=== PATIENT | female | born 1955 | race African-American/Black ===

== ENCOUNTER 2017-12-07 05:51 | Inpatient (IN) | payer BC ==
[2017-11-30 17:37] VITALS: BMI 28.5
[2017-12-07] MEDS ORDERED: MIDAZOLAM HCL 2 MG/2 ML SINGLE DOSE VIAL ONE (06:57)
[2017-12-07] MEDS ORDERED: BUPIVACAINE LIPOSOME/PF (EXPAREL) 266 MG/20 ML VIAL ONE (06:58)
[2017-12-07] MEDS ORDERED: VANCOMYCIN 1,000 MG in DEXTROSE 5%-WATER - 250 ML IVPB ONE (07:08)
[2017-12-07] MEDS ORDERED: TRANEXAMIC ACID 1000 MG/10 ML VIAL IVPUSH ONE (07:08)
[2017-12-07] MEDS ORDERED: CEFAZOLIN 2 GM in DEXTROSE 5%-WATER - 50 ML IVPB ONE (07:08)
[2017-12-07] MEDS ORDERED: ONDANSETRON 4 MG/2 ML VIAL ONE ×2 (07:13→11:51)
[2017-12-07] MEDS ORDERED: DEXAMETHASONE SOD PHOSPHATE 4 MG/1 ML VIAL ONE (07:13)
[2017-12-07] MEDS ORDERED: PROPOFOL 20 ML ONE (07:13)
[2017-12-07] MEDS ORDERED: SUCCINYLCHOLINE CHLORIDE 200 MG/10 ML VIAL ONE (07:13)
[2017-12-07] MEDS ORDERED: VANCOMYCIN 1,000 MG VIAL (RESTRICTED TO ID ONLY) ONE (07:13)
[2017-12-07] MEDS: CELECOXIB 200 MG CAPSULE PO ONE ×2 (07:25→14:45)
[2017-12-07] MEDS: oxyCODONE HCL 10 MG SUSTAINED ACTING TABLET PO ONE ×2 (07:25→14:45)
[2017-12-07] MEDS ORDERED: ceFAZolin SODIUM 1 GM VIAL ONE ×2 (08:39→10:22)
[2017-12-07] MEDS ORDERED: TRANEXAMIC ACID 1000 MG/10 ML VIAL ONE (10:35)
[2017-12-07] MEDS ORDERED: ONDANSETRON 4 MG/2 ML VIAL IVPUSH PRN ×2 (11:05→11:57)
[2017-12-07] MEDS ORDERED: oxyCODONE HCL 5 MG TABLET PO PRN (11:06)
[2017-12-07] MEDS ORDERED: ACETAMINOPHEN 325 MG TABLET (FP) PO SCH (11:15)
[2017-12-07] MEDS ORDERED: LACTATED RINGERS SOLUTION 1,000 ML IV SCH ×2 (11:15→12:00)
[2017-12-07] MEDS ORDERED: BENZOIN/ALOE VERA/STORAX/TOLU 58 ML BOTTLE ONE (11:20)
[2017-12-07] MEDS ORDERED: MAG HYDROX/AL HYDROX/SIMETH 30 ML UNIT-DOSE CUP PO PRN (11:57)
[2017-12-07] MEDS ORDERED: MAGNESIUM HYDROX 2400MG/30ML ORAL SUSPENSION 30 ML CUP PO PRN (11:57)
--- NOTE | 2017-12-07 12:05 | OP ---
Operative Note - Note: Operative Date: 12/07/17 Pre-Operative Diagnosis: Left knee DJD Operation: Left total knee replacement Implants: [employer] Tri[employer]. Femur - 4. Tibia - 4. Poly - 9mm, PS. Patella - 27mm, symmetric Surgeon: Sinan Rodriguez Electroencephalographic Technologist: John Rodriguez Anesthesiologist/NETBACKUP ENGINEER: Ana Cristina Palafox Anesthesia: Spinal Specimens Removed: Bone, soft tissue Estimated Blood Loss (mls): 25 Fluid Volume Replaced (mls): 1,000 Operative Report Dictated: Yes
--- NOTE | 2017-12-07 12:08 | PN ---
Progress Note (short form) - Note Progress Note: 62F s/p left total knee replacement POD #0. -Pain control. -DVT PPx: -Chemical: ASA 81mg PO BID x 6 weeks. -Mechanical: ANTHONY's, SCD's. -Incentive spirometry. -PT/OT/Rehab, OOB. -WBAT LLE. -Antibiotics: Ancef x 2 post op doses. -f/u post-op trial of void. -Diet as tolerated. -Keep dressing clean & dry. -Care per medical hospitalist team. -f/u [facility] [place] office 12/15/2017; call for appointment; . -Will follow. Sinan Rodriguez MD (Orthopaedic Surgery).
[2017-12-07] MEDS: ACETAMINOPHEN 1000 MG/100 ML VIAL (NON FORMULARY) IVPB SCH ×2 (12:26→14:46)
[2017-12-07] MEDS ORDERED: ACETAMINOPHEN 1000 MG/100 ML VIAL (NON FORMULARY) IVPB SCH (13:45)
[2017-12-07] MEDS: oxyCODONE HCL 5 MG TABLET PO PRN ×2 (13:58→20:15)
[2017-12-07] MEDS: VALSARTAN 160 MG TABLET (UD) PO SCH (14:46)
[2017-12-07] MEDS: amLODIPine BESYLATE 10 MG TABLET (FP) PO SCH (14:46)
--- NOTE | 2017-12-07 17:06 | OP ---
PREOPERATIVE DIAGNOSIS: Osteoarthritis left knee. POSTOPERATIVE DIAGNOSIS: Osteoarthritis left knee. PROCEDURE PERFORMED: Left total knee replacement. SURGEON: Sinan Rodriguez M.D. JAPANESE INTERPRETER: John Rodriguez M.D. ANESTHESIA: Spinal, sedation, adductor canal block. POSITION: Supine INCISION: Midline SPECIMENS REMOVED: Bones, soft tissue. ESTIMATED BLOOD LOSS: 25 mL. INTRAVENOUS FLUID: 1L crystalloid. SPECIMENS: None. DRAINS: None. COMPLICATIONS: None. URINE OUTPUT: None. BACTERIOLOGY: None. TRANSFUSIONS: None. CLOSURE: No. 1 and 2-0 Vicryl, 3-0 Biosyn absorbable sutures. TOURNIQUET PRESSURE: 350 mmHg. TOURNIQUET TIME: 83 minutes. INDICATIONS: The patient is a 62-year-old female who was indicated for a left total knee replacement in order to facilitate improved motion and mobilization and to prevent the complications associated with a sedentary lifestyle. The patient was identified in the holding area by her armband. A long discussion was held with the patient in the presence of her regarding the risks, benefits, and alternatives of the above-named procedure. The risks include, but are not limited to: Pain, bleeding, infection, damage to surrounding structures (including nerves, blood vessels, skin, ligaments, tendons, and bone), wound complications, failure of hardware/implants/reduction, need for further surgery, blood clots, myocardial infarction, cerebrovascular injury, pulmonary embolism, anesthesia complications, compartment syndrome, limb loss, limp, loss of function, and . Benefits were as mentioned above. Alternatives include no surgery. All questions were answered. The patient and her partner understood and agreed to the procedure. Informed consent was obtained, witnessed, and verified. The patient 's correct operative limb - that is the left lower extremity - was marked. The patient was taken to the operating room after being seen by the anesthesia and nursing staff. PROCEDURE: The patient received a left lower extremity adductor canal nerve block in the preoperative holding area. She was then brought into the operating room and transferred to the OR table, where she was secured with a safety strap. Consent and the operative site were again verified with the patient and nursing and anesthesia staff. Upon arrival into the operating room, she received 1 g of intravenous vancomycin as well as 2 g of intravenous Ancef. A time-out was then done led by , the attending surgeon. A preoperative orthopedic examination revealed a marked varus deformity of the left knee with no evidence of flexion contracture of the knee. The patient was positioned with all bony prominences well padded, and a tourniquet was placed proximally on the left thigh and set to 350 mmHg. The operative limb was prepped in standard sterile fashion using betadine prep & scrub, alcohol, and DuraPrep, and then free draped. A time-out was again done. The limb was then exsanguinated using elevation and an Esmarch. The tourniquet was inflated, and the case began. A midline longitudinal incision was made over the left knee followed by a subvastus exposure. The infrapatellar fat pad was excised. A peripatellar neurectomy was performed using electrocautery. The patella was everted and a free-hand cut was made using an oscillating saw blade to facilitate patellar resurfacing. With the intention of implanting a small symmetric patellar button, a drill guide was utilized to ream 3 drill holes into the cut surface of the patella. The knee was then flexed to 90 degrees and the ACL and PCL were transected using electrocautery. Throughout the case, sharp and blunt Hohmann retractors were used to provide full exposure of the knee and also to protect the collateral ligaments, the patellar ligament, the quadriceps mechanism, and other soft tissue structures. Next, attention was turned to the proximal tibia. The tibia was subluxed anteriorly and the extra-medullary jig was assembled and placed. With alignment verified, the tibial cutting block was pinned into position and the proximal tibial cut was made using an oscillating saw. The bone cut was freed of all soft tissue attachments using electrocautery. Next, attention was turned to the distal femur. An opening reamer was used to access the medullar canal of the distal femur. This was approximately 1cm anterior to the intercondylar notch and centered of the lateral aspect of the medial femoral condyle. The intra-medullary alignment jig was then inserted and the distal femoral cutting block was pinned into position. The distal femoral cut was then made using an oscillating saw. Using a combination of Oakland's line, the trans-epicondylar axis, and the posterior condylar axis, appropriate rotation of the distal femoral sizing block was dialed in. The size of the distal femur was measured and the 4-in-1 distal femoral cutting block was pinned into position. The anterior, anterior chamfer, posterior, and posterior chamfer cuts were then made using an oscillating saw. All bone cuts were removed. With the knee in full extension, a rectangular box could be visualized where the bone cuts had been made. With gentle impaction of the proximal tibia into the distal femur, excellent limb alignment was confirmed. Next laminar spreaders were used to facilitate electrocautery excision of the medial and lateral menisci. A spacer block was then used to confirm symmetric space balance in both full extension and in 90 degrees of flexion of the knee. The notch cutting block was pinned into place over the distal femur and the notch cuts were made using a chisel and an oscillating saw. The bone cut and soft tissue attachments were excised using electrocautery. The tibial preparation plate was then pinned into place, the trial femoral component was positioned, and a 9mm trial polyethylene liner was inserted. The knee was then taken through a full range of motion, demonstrating excellent stability and range of motion in the coronal, sagittal, and axial planes from 0 to 130 degrees of flexion. The femoral trial component and polyethylene liner were then removed and the proximal tibial preparation was completed using a drill guide, drill, and keel punch. All tibial trial components were then removed. All cut bone surfaces, soft tissues, and remaining surgically exposed structures were then thoroughly irrigated using pulse lavage. The cut bone surfaces were dried and the interstices of the bone bed were free of blood, water, and lipid content. Final components were implanted using low viscosity cement mixed in a vacuum. Cementation was performed using a pressurized gun. The trial 9mm liner was then inserted. The knee was then placed in full extension while the cement hardened. All extraneous cement was removed. Next, the knee was taken through a full range of motion and alignment and stability in the coronal, sagittal, and rotation planes in full extension and at 90 degrees of flexion were satisfactory. The leg was straightened, and passive range of motion was demonstrated from 0 to 130 degrees of knee flexion. The knee was thoroughly irrigated once again after removal of the trial polyethylene insert. The tourniquet was then released at a final time of 83 minutes, and hemostasis was achieved using electrocautery. The final polyethylene liner was then inserted. Once again, the knee was taken through a full range of motion and alignment and stability in the coronal, sagittal, and rotation planes in full extension and at 90 degrees of flexion were satisfactory. The leg was straightened, and passive range of motion was demonstrated from 0 to 130 degrees of knee flexion. Final components utilized: [employer] Triathlon Femur - size #4. Tibia - size #4. Polyethylene liner - 9mm, PS (posterior stabilized). Patella - 27mm, symmetric. Once again, the wounds were copiously irrigated. With hemostasis assured, the decision was made not to use a drain. The wounds were closed primarily using No. 1 and 2-0 Vicryl sutures, and the skin was eventually closed using 3-0 Biosyn in intracuticular running fashion. Next, the skin surface was cleaned using saline -soaked lap pads and then dried using dry lap pads. Benzoin and Steri-Strips as well as a JumpStart dressing were applied over the wounds, and Webril as well as Horacio wraps were placed from the foot all the way up to the thigh with a compressive, sterile dressing. The sponge and needle counts were correct at the end of the case, and I, the attending surgeon, was present and scrubbed throughout the case. The patient was then transferred to the hospital bed and then to the recovery room in stable condition having tolerated this procedure well. MD CHANDA Kessler/[id number] MTDD
[2017-12-07] MEDS: CEFAZOLIN 2 GM/D5W 2 GM/50 ML ML IVPB SCH (17:32)
[2017-12-07] MEDS: ACETAMINOPHEN 325 MG TABLET (FP) PO SCH (17:33)
[2017-12-07] MEDS: oxyCODONE HCL 10 MG SUSTAINED ACTING TABLET PO SCH (21:52)
[2017-12-07] MEDS: ASPIRIN 81 MG CHEWABLE TABLETS PO SCH (21:52)
[2017-12-07] MEDS: SENNOSIDES/DOCUSATE COMBO (SENNA PLUS) TABLET (UD) PO SCH (21:53)
[2017-12-08] MEDS: ACETAMINOPHEN 325 MG TABLET (FP) PO SCH ×5 (01:46→23:38)
[2017-12-08] MEDS: CEFAZOLIN 2 GM/D5W 2 GM/50 ML ML IVPB SCH (02:19)
[2017-12-08] MEDS: oxyCODONE HCL 5 MG TABLET PO PRN ×3 (02:37→16:58)
--- NOTE | 2017-12-08 07:52 | CONSULT ---
Consultation: REQUESTING PROVIDER: Dr Rodriguez CONSULT REQUEST: We have been asked to medically evaluate this patient for medical management. HISTORY OF PRESENT ILLNESS: Patient is a 62 y/o female with a past medical history of hypertension and osteoarthritits, Patient is s/p left total knee replacement, 12/07/17 REVIEW OF SYSTEMS: CONSTITUTIONAL: Absent: fever, chills, diaphoresis, generalized weakness, malaise, loss of appetite, weight change HEENT: Absent: rhinorrhea, nasal congestion, throat pain, throat swelling, difficulty swallowing, mouth swelling, ear pain, eye pain, visual changes CARDIOVASCULAR: Absent: chest pain, syncope, palpitations, irregular heart rate, lightheadedness , peripheral edema RESPIRATORY: Absent: cough, shortness of breath, dyspnea with exertion, orthopnea, wheezing, stridor, hemoptysis GASTROINTESTINAL: Absent: abdominal pain, abdominal distension, nausea, vomiting, diarrhea, constipation, melena, hematochezia GENITOURINARY: Absent: dysuria, frequency, urgency, hesitancy, hematuria, flank pain, genital pain MUSCULOSKELETAL: Present: left knee replacement Absent: myalgia, arthralgia, joint swelling, back pain, neck pain SKIN: Absent: rash, itching, pallor HEMATOLOGIC/IMMUNOLOGIC: Absent: easy bleeding, easy bruising, lymphadenopathy, frequent infections ENDOCRINE: Absent: unexplained weight gain, unexplained weight loss, heat intolerance, cold intolerance NEUROLOGIC: Absent: headache, focal weakness or paresthesias, dizziness, unsteady gait, seizure, mental status changes, bladder or bowel incontinence PSYCHIATRIC: Absent: anxiety, depression, suicidal or homicidal ideation, hallucinations. PHYSICAL EXAMINATION Vital Signs - 24 hr 12/07/17 12/07/17 12/07/17 11:40 11:45 11:50 Temperature 98.1 F Pulse Rate 80 67 78 Respiratory 18 14 14 Rate Blood Pressure 103/73 130/70 134/59 O2 Sat by Pulse 97 99 96 Oximetry (%) 12/07/17 12/07/17 12/07/17 11:55 12:10 12:25 Temperature Pulse Rate 79 77 80 Respiratory 14 15 15 Rate Blood Pressure 143/61 124/58 140/66 O2 Sat by Pulse 97 99 96 Oximetry (%) 12/07/17 12/07/17 12/07/17 12:40 13:50 19:00 Temperature 98.1 F 97.9 F 97.9 F Pulse Rate 78 73 73 Respiratory 15 16 16 Rate Blood Pressure 142/50 143/63 143/63 O2 Sat by Pulse 95 95 Oximetry (%) 12/07/17 12/07/17 12/08/17 20:41 22:26 06:00 Temperature 99.3 F 99.1 F Pulse Rate 69 65 Respiratory 16 17 18 Rate Blood Pressure 166/62 152/67 O2 Sat by Pulse 95 96 94 L Oximetry (%) GENERAL: Awake, alert, and fully oriented, in no acute distress. HEAD: Normal with no signs of trauma. EYES: Pupils equal, round and reactive to light, extraocular movements intact, sclera anicteric, conjunctiva clear. No lid lag. EARS, NOSE, THROAT: Ears normal, nares patent, oropharynx clear without exudates. Moist mucous membranes. NECK: Normal range of motion, supple without lymphadenopathy, JVD, or masses. LUNGS: Breath sounds equal, clear to auscultation bilaterally. No wheezes, and no crackles. No accessory muscle use. HEART: Regular rate and rhythm, normal S1 and S2 without murmur, rub or gallop. ABDOMEN: Soft, nontender, not distended, normoactive bowel sounds, no guarding, no rebound, no masses. No hepatomegaly or splenomegaly. MUSCULOSKELETAL: Normal range of motion at all joints. No bony deformities or tenderness. No CVA tenderness. UPPER EXTREMITIES: 2+ pulses, warm, well-perfused. No cyanosis. No clubbing. Cap refill <2 seconds. No peripheral edema. LOWER EXTREMITIES: 2+ pulses, warm, well-perfused. No calf tenderness. No peripheral edema. LEFT LOWER EXTREMITY: scd/jose antonio, dressing cdi, less than 3 second capillary refill , +3 pedal pulse NEUROLOGICAL: Cranial nerves II-XII intact. Normal speech. Normal gait. PSYCHIATRIC: Cooperative. Good eye contact. Appropriate mood and affect. SKIN: Warm, dry, normal turgor, no rashes or lesions noted. Active Medications Generic Name Dose Route Start Last Admin Trade Name Freq PRN Reason Stop Dose Admin Acetaminophen 650 mg 12/07/17 18:30 12/08/17 05:59 Tylenol - PO 12/10/17 18:29 650 mg Q6H FELICIANO Administration Al Hydroxide/Mg Hydroxide 30 ml 12/07/17 11:57 Mylanta Oral Suspension - PO Q4H PRN DYSPEPSIA Amlodipine Besylate 10 mg 12/07/17 10:00 12/07/17 14:46 Norvasc - PO Not Given DAILY [facility] Aspirin 81 mg 12/07/17 22:00 12/07/17 21:52 Asa - PO 81 mg BID FELICIANO Administration Celecoxib 200 mg 12/08/17 10:00 Celebrex - PO DAILY [facility] Magnesium Hydroxide 30 ml 12/07/17 11:57 Milk Of Magnesia - PO PRN PRN CONSTIPATION Ondansetron HCl 4 mg 12/07/17 11:57 12/07/17 11:51 Zofran Injection IVPUSH 4 mg Q6H PRN Administration NAUSEA Oxycodone HCl 5 mg 12/07/17 11:06 Roxicodone - PO Q3H PRN PAIN LEVEL 1-5 Oxycodone HCl 10 mg 12/07/17 11:06 12/08/17 02:37 Roxicodone - PO 10 mg Q3H PRN Administration PAIN LEVEL 6-10 Oxycodone HCl 10 mg 12/07/17 22:00 12/07/17 21:52 Oxycontin - PO 12/10/17 11:06 10 mg BID FELICIANO Administration Pantoprazole Sodium 40 mg 12/08/17 10:00 Protonix - PO DAILY [facility] Senna/Docusate Sodium 2 tablet 12/07/17 22:00 12/07/17 21:53 Pericolace - PO 2 tablet BID FELICIANO Administration Valsartan 320 mg 12/07/17 10:00 12/07/17 14:46 Diovan - PO Not Given DAILY [facility] ASSESSMENT/PLAN: 1) MS s/p left total knee replacement - prn pain medication - physical therapy as per orthopedist - monitor hgb 2) cardiovascular hypertension - continue home medications, b/p at goal Dispo: We will continue to follow the patient. Thank you for this consultative opportunity. Visit type - Emergency Visit Emergency Visit: No - New Patient This patient is new to me today: No - Critical Care Critical Care patient: No
[2017-12-08 07:57] LABS: HEMATOCRIT 35.7 % (32.4-45.2); HEMOGLOBIN 12.2 GM/dl (10.7-15.3); MCH 30.5 pg (25.7-33.7); MCHC 34.1 g/dl (32.0-36.0); MEAN CELL VOLUME 89.5 fl (80-96); MEAN PLT VOLUME 8.5 fl (7.5-11.1); PLATELET COUNT 280 K/MM3 (134-434); RDW 13.5 % (11.6-15.6); WHITE BLOOD COUNT 12.8 K/mm3 (4.0-10.8)
[2017-12-08 08:11] LABS: ANION GAP 8 (8-16); BLOOD UREA NITROGEN 17 mg/dl (7-18); CALCIUM 9.1 mg/dl (8.4-10.2); CHLORIDE 101 mmol/L (98-107); CO2 27 mmol/L (22-28); CREATININE 0.7 mg/dl (0.6-1.3); GLUCOSE,RANDOM 133 mg/dl (74-106); POTASSIUM 4.3 mmol/L (3.5-5.1); SODIUM 136 mmol/L (136-145)
[2017-12-08] MEDS: oxyCODONE HCL 10 MG SUSTAINED ACTING TABLET PO SCH ×2 (09:47→21:14)
[2017-12-08] MEDS: VALSARTAN 160 MG TABLET (UD) PO SCH (09:47)
[2017-12-08] MEDS: SENNOSIDES/DOCUSATE COMBO (SENNA PLUS) TABLET (UD) PO SCH ×2 (09:47→21:14)
[2017-12-08] MEDS: ASPIRIN 81 MG CHEWABLE TABLETS PO SCH ×2 (09:48→21:13)
[2017-12-08] MEDS: amLODIPine BESYLATE 10 MG TABLET (FP) PO SCH (09:48)
[2017-12-08] MEDS: PANTOPRAZOLE 40 MG TABLET (FP) PO SCH (09:48)
[2017-12-08] MEDS: CELECOXIB 200 MG CAPSULE PO SCH (09:48)
--- NOTE | 2017-12-08 15:02 | PN ---
Progress Note (short form) - Note Progress Note: 62F POD1 s/p L TKR under spinal anesthetic with peripheral nerve blocks. Pt states that pain is well controlled, and denies any anesthetic complications. AVSS. Motor and sensory function intact in bilateral lower extremities. Continue current regimen.
[2017-12-09] MEDS: ACETAMINOPHEN 325 MG TABLET (FP) PO SCH (07:06)
[2017-12-09] MEDS: oxyCODONE HCL 5 MG TABLET PO PRN (07:19)
[2017-12-09 08:21] LABS: MEAN CELL VOLUME 90.9 fl (80-96)
[2017-12-09 08:25] LABS: HEMOGLOBIN 11.7 GM/dl (10.7-15.3); MCH 29.6 pg (25.7-33.7); MCHC 32.6 g/dl (32.0-36.0); PLATELET COUNT 275 K/MM3 (134-434); RBC 3.96 M/mm3 (3.60-5.2); RDW 13.5 % (11.6-15.6); WHITE BLOOD COUNT 12.1 K/mm3 (4.0-10.8)
[2017-12-09] MEDS: SENNOSIDES/DOCUSATE COMBO (SENNA PLUS) TABLET (UD) PO SCH (10:35)
[2017-12-09] MEDS: CELECOXIB 200 MG CAPSULE PO SCH (10:35)
[2017-12-09] MEDS: ASPIRIN 81 MG CHEWABLE TABLETS PO SCH (10:35)
[2017-12-09] MEDS: amLODIPine BESYLATE 10 MG TABLET (FP) PO SCH (10:35)
[2017-12-09] MEDS: PANTOPRAZOLE 40 MG TABLET (FP) PO SCH (10:35)
[2017-12-09] MEDS: VALSARTAN 160 MG TABLET (UD) PO SCH (10:36)
[2017-12-09] MEDS: oxyCODONE HCL 10 MG SUSTAINED ACTING TABLET PO SCH (10:36)
--- NOTE | 2017-12-09 13:00 | PATH ---
Surgical Pathology Report Patient Name: MONIE RODRÍGUEZ Med. Rec. #: [id number] /Age/Gender: 1955 (Age: 62) / F Account: [id number] Location: [facility] MED-SURG Taken: 12/07/2017 Received: 12/07/2017 Reported: 12/09/2017 Physicians: Sinan Rodriguez M.D. Specimen(s) Received LEFT KNEE BONES Clinical History Left knee unilateral primary osteoarthritis Final Diagnosis KNEE BONES, LEFT, TOTAL KNEE REPLACEMENT: DEGENERATIVE JOINT DISEASE. Electronically Signed Sera Nicholson M.D. Gross Description Received in formalin labeled "left knee bones," is a 10.5 x 8.5 x 2.0 cm aggregate of tian portions of bone and soft tissue. The tibial plateau measures 7.4 x 4.8 x 1.5 cm. There is a 1.2 cm greatest dimension area of eburnation identified. The remaining articular surfaces are tian-yellow and focally granular. The underlying trabecular bone is yellow and hard. Tool Tender sections are submitted in one cassette, following decalcification. /12/08/2017 [facility]12/08/2017
--- NOTE | 2017-12-09 13:34 | DS ---
"Physical Exam: SUBJECTIVE: Patient seen and examined, ambulated independently with walker,, reports minimal pain to the left lower extremity denies any chest pain or shortness of breath tolerating diet. OBJECTIVE:Patient is a 62 y/o female with a past medical history of hypertension and osteoarthritits, Patient is s/p left total knee replacement, Vital Signs Period Temp Pulse Resp BP Sys/Otto Pulse Ox Last 24 Hr 98.7 F-99.4 F 72-88 18-20 140-159/56-75 96-100 PHYSICAL EXAM GENERAL: The patient is awake, alert, and fully oriented, in no acute distress. HEAD: Normal with no signs of trauma. EYES: PERRL, extraocular movements intact, sclera anicteric, conjunctiva clear. ENT: Ears normal, nares patent, oropharynx clear without exudates, moist mucous membranes. NECK: Trachea midline, full range of motion, supple. LUNGS: Breath sounds equal, clear to auscultation bilaterally, no wheezes, no crackles, no accessory muscle use. HEART: Regular rate and rhythm, S1, S2 without murmur, rub or gallop. ABDOMEN: Soft, nontender, nondistended, normoactive bowel sounds, no guarding, no rebound, no hepatosplenomegaly, no masses. EXTREMITIES: 2+ pulses, warm, well-perfused, no edema. LEFT LOWER EXTREMITY: DRESSING CLEAN DRY INTACT, LESS THAN 3 SECOND CAPILLARY REFILL, +3 PEDAL PULSE, NEUROLOGICAL: Cranial nerves II through XII grossly intact. Normal speech, gait not observed. PSYCH: Normal mood, normal affect. SKIN: Warm, dry, normal turgor, no rashes or lesions noted. LABS Laboratory Results - last 24 hr 12/09/17 08:00 WBC 12.1 H RBC 3.96 Hgb 11.7 Hct 36.0 MCV 90.9 MCH 29.6 MCHC 32.6 RDW 13.5 Plt Count 275 MPV 9.0 HOSPITAL COURSE: The patient was admitted to the Med-Surg Unit after an elective left total knee replacement, An xray was obtained in the OR and confirmed hardware placementin good position with no fractures or dislocations. The day of surgery, the patient ambulated the hallways with assistance. Narcotic and non-narcotic pain management control was achieved with an oral and IV approach. Gabriela-operative IV ABX were administered. DVT prophylaxis was achieved with SCDs and early ambulation. The patient ambulated with Physical Therapy and no services were recommended upon discharge. Narcotic scripts and or muscle relaxants were checked with [facility] prior to escibe. The discharge instructions and an oral pain management plan were reviewed with the patient. All questions answered. Above plan discussed with Dr. Rodriguez and agreed. Date of Admission:12/07/17 Date of Discharge: 12/09/17 Minutes to complete discharge: 45 Discharge Summary Reason For Visit: UNILATERAL PRIMARY OSTEOARTHRITIS, LEFT KNEE Condition: Good - Instructions Diet, Activity, Other Instructions: Dr. Rodriguez Discharge Instructions for Knee Replacement Post Operative Instructions Physical activity Physical Therapist will come to your home for the first 5 days. You will be set up with outpatient PT at your first post-operative visit. Use assistive devices for ambulation at all times. Weight bearing as tolerated on your surgical side. Do not put pillow under knee. May put pillow under heel. Wound care Leave your surgical dressing in place. Do not change the dressing until seen by your surgeon in the office. No baths or showers. Do not submerge your incision. Do not apply any ointments or lotions to your incision. Please call the office if your dressing is soiled/dirty or is falling off. Apply Graduated Compression Stockings (TEDS) to both lower extremities - remove daily for hygiene ONLY. Diet There are no dietary restrictions. Eat healthy, high-fiber foods. Drink 6 to 8 glasses of liquid each day. This will assist in keeping your bowels are regular. Pain management Any pain prescription medication ordered should be taken as prescribed for moderate to severe pain. Do not take additional Tylenol while taking Percocet. Take Aspirin 81 mg two times a day for a total of 6 weeks to prevent blood clots. Call Dr. Rodriguez for any of the following: Severe pain not relieved by medication Fever of 101 or higher Excessive bleeding or drainage on dressing Inability to urinate If you experience chest pain or shortness of breath, please seek emergency care immediately. Please call the office at to confirm your post-op appointment for the week following surgery. This report was requested by: Sameera Iverson | Reference #: [id number] Disposition: HOME - Home Medications Comprehensive Discharge Medication List: Ambulatory Orders Acetaminophen/Diphenhydramine [Tylenol Pm Ex-Strength Caplet] 1 each PO Q6H PRN 11/30/17 Amlodipine Besylate [Norvasc -] 10 mg PO DAILY 11/30/17 Valsartan 320 mg PO DAILY 11/30/17 This patient is new to me today: No Emergency Visit: No Critical Care patient: No - Discharge Referral Referred to [facility] No"
[2017-12-09 14:07] VITALS: BP 169/58; PULSE 77; TEMP 98.5
--- NOTE | 2017-12-09 15:17 | PN ---
Progress Note (short form) - Note Progress Note: POD#2 Pt oob with PT. No CP/SOB. Pain well controlled. Vital Signs Period Temp Pulse Resp BP Sys/Otto Pulse Ox Last 24 Hr 98.5 F-99.4 F 72-88 18-20 140-169/58-75 99-100 GEN: Appears comfortable CV: RRR Lungs: CTA b/l anteriorly Left leg: dressing c/d/i. No swelling noted. +2DP, 5/5 dorsi/plantar flexion. CBC, BMP /02/16 08:00 08/09/18 07:30 A/p: 62 yo female s/p Left total knee replacement, POD#2 Plan for discharge today D/w Dr. Rodriguez Instructed pt on post-operative care. DVT ppx, dressing care and office follow-up
== END 2017-12-09 16:00 | disposition home or self-care (01) | DRG 470 ==
LOC: FM/S 05:51
PROVIDERS: ADMIT Orthopaedic Surgery Adult Reconstructive Orthopaedic Surgery; ATTEND Orthopaedic Surgery Adult Reconstructive Orthopaedic Surgery
PROC: 0SRD0J9 Replacement of Left Knee Joint with Synthetic Substitute, Cemented, Open Approach (ICD-10-PCS; principal; 2017-12-07 08:00)
DX: M17.12 Unilateral primary osteoarthritis, left knee (principal); I10 Essential (primary) hypertension
CPT/HCPCS: 36415; 73560-TC-LT-FY; 80048; 85027; 88304-TC; 88311-TC; 94760; 97116-GP; 97162-GP; J0131